=== PATIENT | female | born 1955 | race Hispanic/Latino ===

== ENCOUNTER 2017-06-27 13:27 | Outpatient (CLI) | payer MEDICARE, BC ==
--- NOTE | 2017-06-28 14:28 | MMO ---
BILATERAL SCREENING MAMMOGRAM: Comparison: Prior mammograms dating back to 12-18-05. This study is interpreted with the assistance of computer aided detection. FINDINGS: There are scattered fibroglandular elements bilaterally. Benign appearing calcifications are seen grace aterally, without evidence of dominant mass, suspicious cluster of microcalcification, or architectur al distortion. IMPRESSION: BIRADS 2 - benign findings. Annual screening mammography recommended. POS: [facility]
== END 2017-06-27 13:28 | disposition home or self-care (01) ==
LOC: SCSMAMMO 13:27
PROVIDERS: ATTEND Family Medicine
DX: Z12.31 Encounter for screening mammogram for malignant neoplasm of breast (principal)
CPT/HCPCS: 77067

== ENCOUNTER 2018-07-01 12:11 | Outpatient (CLI) | payer MEDICARE, OTHER | END 2018-07-01 12:12 | disposition home or self-care (01) | LOC: BICMAMMO 12:11 | PROVIDERS: ATTEND Family Medicine | DX: Z12.31 Encounter for screening mammogram for malignant neoplasm of breast (principal) | CPT/HCPCS: 77063; 77067 ==

== ENCOUNTER 2019-07-04 13:02 | Outpatient (CLI) | payer OTHER ==
--- NOTE | 2019-07-04 15:38 | MMO ---
Bilateral MAMMO Bilat Screen [facility]. CLINICAL HISTORY: Patient is 64 years old and is seen for screening. The patient has no family history of breast cancer. The patient has no personal history of cancer. VIEWS: The views performed were: bilateral craniocaudal with tomosynthesis and bilateral mediolateral oblique with tomosynthesis. FILMS COMPARED: The present examination has been compared to prior imaging studies performed at [facility] on 03/19/2012, 07/14/2013, 06/26/2016 and 07/01/2018. This study has been interpreted with the assistance of computer-aided detection. MAMMOGRAM FINDINGS: There are scattered fibroglandular densities. There are benign appearing calcifications seen in both breasts. There are no suspicious masses, suspicious calcifications, or new areas of architectural distortion. IMPRESSION: THERE IS NO MAMMOGRAPHIC EVIDENCE OF MALIGNANCY. A ROUTINE FOLLOW-UP MAMMOGRAM IN 1 YEAR IS RECOMMENDED. THE RESULTS OF THIS EXAM WERE SENT TO THE PATIENT. ACR BI-RADS Category 2 - Benign finding MAMMOGRAPHY NOTE: 1. A negative mammogram report should not delay a biopsy if a dominant of clinically suspicious mass is present. 2. Approximately 10% to 15% of breast cancers are not detected by mammography. 3. Adenosis and dense breasts may obscure an underlying neoplasm. Reported by: ERIKA EDMONDSON MD Electonically Signed: [id number]
== END 2019-07-04 13:03 | disposition home or self-care (01) ==
LOC: BICMAMMO 13:02
PROVIDERS: ATTEND Family Medicine
DX: Z12.31 Encounter for screening mammogram for malignant neoplasm of breast (principal)
CPT/HCPCS: 77063; 77067